=== PATIENT | female | born 1995 | race Two or more races ===

== ENCOUNTER → 2022-01-24 | Emergency (ER) | payer MEDICAID ==
[~2022-01-24] VITALS: Ht 152.4 cm; Wt 68.0 kg
[2022-01-24 21:07] VITALS: BP 127/85
== END | disposition left against medical advice (07) ==
LOC: ER 20:59
DX: J02.9 Acute pharyngitis, unspecified (principal); H92.01 Otalgia, right ear; Z53.21 Procedure and treatment not carried out due to patient leaving prior to being seen by health care provider